=== PATIENT | male | born 1960 | race Caucasian/White ===

== ENCOUNTER → 2017-07-14 | Day surgery (SDC) | payer BC ==
[2017-07-13 13:24] VITALS: BMI 37.0
[~2017-07-14] VITALS: Ht 170.2 cm; Wt 108.6 kg
[~2017-07-14] MED LIST: ASPI-435 PO; CETITAB27 PO; COEN100C11 PO; FENTANYL CITRATE INJ 50 MCG/1 ML 2 ML VIAL ONE; GLUC10007 PO; LIDOCAINE HCL 2% 2 ML VIAL (20MG/ML) ONE; PRLSR20 PO; PROPOFOL IV EMULSION 10 MG/ML 20 ML VIAL IV ONE; ROSU5TAB PO; SODIUM CHLORIDE 0.9% 500ML 500 ML IV ONE; VITACAP26 PO
[2017-07-14 14:20] VITALS: Ht 170.2 cm; Wt 108.6 kg
--- NOTE | 2017-07-14 15:11 | Endo History and Physical ---
History & Physical Date of Service: Jul 14, 2017. Chief Complaint: GERD NAUSEA Referring Physician: DR LARIOS History of Present Illness n/v; gerd Past Surgical History Hx Cardiac Surgery: No Hx Internal Defibrillator: No Hx Pacemaker: No Hx Abdominal Surgery: Yes (APPY) Hx Post-Op Nausea and Vomiting: No Hx Cancer Surgery: Yes (BASAL CELL CA REMOVED FROM ARM) Hx Thoracic Surgery: No Hx Orthopedic: No Hx Urinary Tract Surgery: No Family History None Social History Smoking Status: Never Smoker Hx Substance Use: No Hx Alcohol Use: No (OCAS) Allergies Coded Allergies: No Known Allergies (Unverified , 07/14/17) Current Medications Reported Home Medications Medications Dose Route/Sig Max Daily Dose Days Date Category Glucosamine (Glucosamine Sulfate) 1,000 Mg Tab 1,000 Mg PO QAM 07/13/17 Reported Vitamin C (Vitamins C & E) 1 Cap Cap 1 Cap PO QAM 07/13/17 Reported Coq-10 (Coenzyme Q10 (Ubidecarenone)) 100 Mg Cap 1 Tab PO QAM 07/13/17 Reported Zyrtec-D Er 5MG/120MG (Cetirizine/Pseudoephedrine) Tabcr 1 Tab PO BID 07/13/17 Reported Prilosec (Omeprazole) 20 Mg Capcr 20 Mg PO BID 07/13/17 Reported Aspirin 81 (Aspirin) 81 Mg Tab 81 Mg PO QAM 06/25/14 Reported Crestor (Rosuvastatin Calcium) 5 Mg Tab 5 Mg PO HS 06/25/14 Reported Vital Signs Weight (Kilograms): 108.64 Height (Feet): 5 Height (Inches): 7 Date Time Temp Pulse Resp B/P (MAP) Pulse Ox O2 Delivery O2 Flow Rate FiO2 07/14/17 14:24 36.9 93 18 135/85 (102) 95 Room Air Physical Exam AAOx3 Nls1s2 lungs CTA Abd soft NT/ND + BS - CCE Assessment and Plan EGD today
--- NOTE | 2017-07-14 15:33 | GI REPORT ---
Procedure Date: 07/14/2017 3:10 PM Procedure: Upper GI endoscopy Indications: Gastro-esophageal reflux disease, Nausea with vomiting Medicines: Propofol per Anesthesia Complications: No immediate complications. Estimated blood loss: Minimal. Estimated Blood Loss: Estimated blood loss was minimal. Procedure: Pre-Anesthesia Assessment: - Prior to the procedure, a History and Physical was performed, and patient medications and allergies were reviewed. The patient's tolerance of previous anesthesia was also reviewed. The risks and benefits of the procedure and the sedation options and risks were discussed with the patient. All questions were answered, and informed consent was obtained. Prior Anticoagulants: The patient has taken no previous anticoagulant or antiplatelet agents. ASA Grade Assessment: II - A patient with mild systemic disease. After reviewing the risks and benefits, the patient was deemed in satisfactory condition to undergo the procedure. After obtaining informed consent, the endoscope was passed under direct vision. Throughout the procedure, the patient's blood pressure, pulse, and oxygen saturations were monitored continuously. The scope was introduced through the mouth, and advanced to the second part of duodenum. The upper GI endoscopy was accomplished without difficulty. The patient tolerated the procedure well. Findings: The examined esophagus was normal. The Z-line was regular and was found 44 cm from the incisors. Striped mildly erythematous mucosa without bleeding was found in the gastric antrum. Biopsies were taken with a cold forceps for histology. Verification of patient identification for the specimen was done by the physician and assessment technician using the patient's name and medical record number. Retained gastric contents are not identified on this exam. The exam of the stomach was otherwise normal. The examined duodenum was normal. Biopsies for histology were taken with a cold forceps for evaluation of celiac disease. Estimated blood loss was minimal. Verification of patient identification for the specimen was done by the physician and assessment technician using the patient's name and medical record number. The cardia and gastric fundus were normal on retroflexion. Features of portal HTN by way of esophageal or gastric varices are not indentified. Impression: - Normal esophagus. - Z-line regular, 44 cm from the incisors. - Erythematous mucosa in the antrum. Biopsied. - Normal examined duodenum. Biopsied. Recommendation: - Discharge patient to home (ambulatory). - Advance diet as tolerated. - Continue present medications. - Await pathology results. - Return to GI clinic as previously scheduled. MD Omero Keller MD 07/14/2017 3:33:11 PM This report has been signed electronically. Note Initiated On: 07/14/2017 3:10 PM I attest to the content of the Intraoperative Record and orders documented therein, exceptions below
[2017-07-14 16:00] VITALS: BP 127/88; PULSE 96; O2SAT 97
--- NOTE | 2017-07-14 16:01 | Anesthesiology Progress Note ---
Anesthesia Post Op Note Date & Time Jul 14, 2017 at 16:01 Vital Signs Pain Intensity: 0 Vital Signs Past 12 Hours Date Time Temp Pulse Resp B/P (MAP) Pulse Ox O2 Delivery O2 Flow Rate FiO2 07/14/17 15:45 98 20 110/81 (91) 95 Room Air 07/14/17 15:30 96 20 117/75 (89) 96 Room Air 07/14/17 14:24 36.9 93 18 135/85 (102) 95 Room Air Notes Mental Status: alert / awake / arousable, participated in evaluation Pt Amnestic to Procedure: Yes Nausea / Vomiting: adequately controlled Pain: adequately controlled Airway Patency, RR, SpO2: stable & adequate BP & HR: stable & adequate Hydration State: stable & adequate Anesthetic Complications: no major complications apparent
--- NOTE | 2017-07-14 16:21 | Discharge Instructions ---
Endoscopy Patient Instructions Date / Procedure(s) Performed Jul 14, 2017. EGD Allergy Information Coded Allergies: No Known Allergies (Unverified , 07/14/17) Discharge Date / Findings Jul 14, 2017. gASTRITIS Medication Instructions Restart Stopped Medication(s): Reported Home Medications Medications Dose Route/Sig Max Daily Dose Days Date Category Glucosamine (Glucosamine Sulfate) 1,000 Mg Tab 1,000 Mg PO QAM 07/13/17 Reported Vitamin C (Vitamins C & E) 1 Cap Cap 1 Cap PO QAM 07/13/17 Reported Coq-10 (Coenzyme Q10 (Ubidecarenone)) 100 Mg Cap 1 Tab PO QAM 07/13/17 Reported Zyrtec-D Er 5MG/120MG (Cetirizine/Pseudoephedrine) Tabcr 1 Tab PO BID 07/13/17 Reported Prilosec (Omeprazole) 20 Mg Capcr 20 Mg PO BID 07/13/17 Reported Aspirin 81 (Aspirin) 81 Mg Tab 81 Mg PO QAM 06/25/14 Reported Crestor (Rosuvastatin Calcium) 5 Mg Tab 5 Mg PO HS 06/25/14 Reported Provider Instructions Activity Restrictions - No exercising or heavy lifting for 24 hours. - Do not drink alcohol the day of the procedure. - Do not drive a car or operate machinery until the day after the procedure. - Do not make any important decisions or sign important papers in 24 hours after the procedure. Following Day: - Return to full activity which may include returning to work/school. Diet Start your diet with liquids and light foods (jello, soup, juice, toast). Then eat your usual diet if not nauseated. Treatment For Common After Affects For mild abdominal pain, bloating, or excessive gas: - Rest - Eat lightly - Lie on right side Reported Home Medications Medications Dose Route/Sig Max Daily Dose Days Date Category Glucosamine (Glucosamine Sulfate) 1,000 Mg Tab 1,000 Mg PO QAM 07/13/17 Reported Vitamin C (Vitamins C & E) 1 Cap Cap 1 Cap PO QAM 07/13/17 Reported Coq-10 (Coenzyme Q10 (Ubidecarenone)) 100 Mg Cap 1 Tab PO QAM 07/13/17 Reported Zyrtec-D Er 5MG/120MG (Cetirizine/Pseudoephedrine) Tabcr 1 Tab PO BID 9/27/17 Reported Prilosec (Omeprazole) 20 Mg Capcr 20 Mg PO BID 07/13/17 Reported Aspirin 81 (Aspirin) 81 Mg Tab 81 Mg PO QAM 06/25/14 Reported Crestor (Rosuvastatin Calcium) 5 Mg Tab 5 Mg PO HS 06/25/14 Reported Follow-Up Information Follow-up with DR LARIOS as scheduled Anesthesia Information What You Should Know You have had a procedure that required some medicine to reduce anxiety and discomfort. This treatment is called moderate sedation. After receiving the treatment, you may be sleepy, but you will be able to breathe on your own. The effects of the treatment may last for several hours. Follow these instructions along with Activity/Diet recommendations noted above: * Do NOT do anything where dizziness or clumsiness would be dangerous. * Rest quietly at home today, then you can be up and about tomorrow. * Have a responsible person stay with you the rest of today. * You may have had an I.V. today. If so, you may take the dressing off later today. Recommendations Call your doctor if: * Trouble breathing * Continuous vomiting for more than 24 hours * Temperature above 101 degrees * Severe abdominal pain or bloating * Pain not relieved by pain medicine ordered * There is increased drainage or redness from any incision * A large amount of rectal bleeding greater than 2-3 tablespoons. (If you had a polyp/s removed or have hemorrhoids, a small amount of blood - from the rectum is to be expected.) * You have any unanswered questions or concerns. IN THE EVENT OF A SERIOUS EMERGENCY, GO TO THE NEAREST EMERGENCY ROOM Your discharge instructions were prepared by provider Omero Dey. Patient Instructions Signature Page Michael Guo Patient (or Guardian) Signature/Date: I have read and understand the instructions given to me by my caregivers. Caregiver/RN/Doctor Signature/Date: The above-named patient and/or guardian has received patient instructions on this date. + Original Patient Signature Page (only) stays with chart. Please make copy for patient.
== END | disposition home or self-care (01) ==
LOC: C.GI 14:04
PROVIDERS: ATTEND Internal Medicine Gastroenterology
DX: K21.9 Gastro-esophageal reflux disease without esophagitis (principal); R11.2 Nausea with vomiting, unspecified; Z85.828 Personal history of other malignant neoplasm of skin; Z79.82 Long term (current) use of aspirin; Z79.899 Other long term (current) drug therapy